=== PATIENT | female | born 2000 | race Hispanic/Latino ===

== ENCOUNTER 2018-02-28 16:19 | Emergency (ER) | payer SELFPAY ==
[~2018-02-28] VITALS: Ht 172.7 cm; Wt 83.0 kg
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
[2018-02-28] MEDS ORDERED: KETOROLAC TROMETHAMINE 60 MG/2 ML VIAL IM ONE (20:30)
[2018-02-28 22:08] LABS: BILIRUBIN,URINE NEGATIVE (NEGATIVE); CLARITY,URINE SL CLOUDY (CLEAR); COLOR,URINE YELLOW (YELLOW); KETONES,URINE NEGATIVE (NEGATIVE); LEUKOCYTE ESTERASE ,URINE TRACE (NEGATIVE); NITRITE,URINE NEGATIVE (NEGATIVE); PROTEIN,URINE DIPSTICK NEGATIVE (NEGATIVE); URINE UROBILINOGEN 0.2 mg/dL (0.2 - 1)
[2018-02-28 22:09] LABS: PREGNANCY TEST, URINE NEGATIVE (NEGATIVE)
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
== END 2018-02-28 23:36 | disposition home or self-care (01) ==
LOC: ER 16:19
DX: M54.2 Cervicalgia (principal); S16.1XXA Strain of muscle, fascia and tendon at neck level, initial encounter; S40.011A Contusion of right shoulder, initial encounter; S90.31XA Contusion of right foot, initial encounter; V43.62XA Car passenger injured in collision with other type car in traffic accident, initial encounter; Y92.488 Other paved roadways as the place of occurrence of the external cause
CPT/HCPCS: 70450; 72125; 73030; 73630; 81001; 81025; 99283; J1885

== ENCOUNTER 2018-09-29 09:52 | Emergency (ER) | payer SELFPAY ==
[~2018-09-29] VITALS: Ht 172.7 cm; Wt 91.6 kg
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
[2018-09-29 11:18] VITALS: BP 137/84
== END 2018-09-29 11:18 | disposition home or self-care (01) ==
LOC: FSED 09:52
DX: R50.9 Fever, unspecified (principal); R05 Cough; J02.9 Acute pharyngitis, unspecified; B34.9 Viral infection, unspecified
CPT/HCPCS: 87400; 99283

== ENCOUNTER 2019-01-01 19:12 | Emergency (ER) | payer MEDICARE ==
[~2019-01-01] VITALS: Ht 172.7 cm; Wt 91.6 kg
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
== END 2019-01-01 22:52 | disposition home or self-care (01) ==
LOC: FSED 19:12
DX: O20.9 Hemorrhage in early pregnancy, unspecified (principal); O20.0 Threatened abortion
CPT/HCPCS: 36415; 76817; 80053; 81003; 81025; 84702; 85025; 99283